=== PATIENT | male | born 1980 | race Two or more races ===

== ENCOUNTER 2017-10-03 13:31 | Emergency (ER) | payer BC ==
[~2017-10-03] VITALS: Ht 172.7 cm; Wt 68.0 kg
[2017-10-03 13:55] VITALS: BP 114/80
[2017-10-03] MEDS ORDERED: FAMO-63 PO (14:25)
[2017-10-03] MEDS ORDERED: PRED20TA PO (14:25)
[2017-10-03] MEDS ORDERED: DIPH25CA58 PO (14:25)
--- NOTE | 2017-10-03 14:25 | PHYS DOC ---
Past Medical History Past Medical History: No Pertinent History Past Surgical History: No Surgical History Alcohol Use: None Drug Use: None Adult General Chief Complaint Chief Complaint: ITCHING HPI HPI Patient is a 37 year old male presents to the emergency department with a 1 week history of rash. Patient states it is worse at night. He showed a picture of a urticaria rash. Denies SOA, difficulty breathing. Denies nausea or vomiting. He denies new soap, new detergent, new medication or new clothing/ linen. Patient has not taken anything for the rash, patient states the rash itches. Information was obtained through the mammal keeper at the patients bedside. Review of Systems Review of Systems Constitutional: Denies fever or chills [] Eyes: Denies change in visual acuity, redness, or eye pain [] HENT: Denies nasal congestion or sore throat [] Respiratory: Denies cough or shortness of breath [] Cardiovascular: No additional information not addressed in HPI [] GI: Denies abdominal pain, nausea, vomiting, bloody stools or diarrhea [] : Denies dysuria or hematuria [] Musculoskeletal: Denies back pain or joint pain [] Integument: rash denies skin lesions [] Neurologic: Denies headache, focal weakness or sensory changes [] Endocrine: Denies polyuria or polydipsia [] All other systems were reviewed and found to be within normal limits, except as documented in this note. Current Medications Current Medications Current Medications Medications (Trade) Dose Ordered Sig/Elise Start Time Stop Time Status Last Admin Dose Admin Diphenhydramine HCl (Benadryl) 25 mg 1X ONCE 10/03/17 14:30 10/03/17 14:31 DC 10/03/17 14:22 25 MG Famotidine (Pepcid) 20 mg 1X ONCE 10/03/17 14:30 10/03/17 14:31 DC 10/03/17 14:22 20 MG Prednisone (Prednisone) 40 mg 1X ONCE 10/03/17 14:30 10/03/17 14:31 DC 10/03/17 14:22 40 MG Allergies Allergies Allergies Coded Allergies Type Severity Reaction Last Updated Verified No Known Drug Allergies 10/03/17 No Physical Exam Physical Exam Constitutional: Well developed, well nourished, no acute distress, non-toxic appearance. [] HENT: Normocephalic, atraumatic, bilateral external ears normal, oropharynx moist, no oral exudates, nose normal. [] Eyes: PERRLA, EOMI, conjunctiva normal, no discharge. [] Neck: Normal range of motion, no tenderness, supple, no stridor. [] Cardiovascular:Heart rate regular rhythm, no murmur [] Lungs & Thorax: Bilateral breath sounds clear to auscultation [] Skin: Warm, dry, no erythema, patient with a red raised rash noted throughout the body. The picture that the patient showed me showed a using bacterial type rash throughout the extremities. Back: No tenderness Extremities: No tenderness, no cyanosis, no clubbing, ROM intact, no edema. [] Neurologic: Alert and oriented X 3, normal motor function, normal sensory function, no focal deficits noted. [] Psychologic: Affect normal, judgement normal, mood normal. [] Current Patient Data Vital Signs Vital Signs Date Time Temp Pulse Resp B/P (MAP) Pulse Ox O2 Delivery O2 Flow Rate FiO2 10/03/17 13:55 98.6 72 16 99 Room Air 98.6 EKG EKG [] Radiology/Procedures Radiology/Procedures [] Course & Med Decision Making Course & Med Decision Making Pertinent Labs and Imaging studies reviewed. (See chart for details) Patient will be discharged home with a prescription for prednisone, Benadryl, and Pepcid. Patient was provided with these medications here in the emergency department. Upon discharge rash is less seema. Recommended keep the area clean and dry and cool. He was also instructed Benadryl will cause drowsiness do not take any be alert and oriented. Patient was provided to the patient's mammal keeper at the bedside. I've spoken with the patient and/or caregivers. I've explained the patient's condition, diagnosis and treatment plan based on information available to me at this time. I've answered the patient's and/or caregivers questions and addressed any concerns. The patient and/or caregivers have a good understanding the patient's diagnosis, condition and treatment plan as can be expected at this point. Vital signs have been stabilized. The patient's condition is stable for discharge from the emergency department. The patient will pursue further outpatient evaluation with her primary care provider or other designated consulting physician as outlined in the discharge instructions. Patient and/or caregivers are agreeable to this plan of care and follow-up instructions have been explained in detail. The patient and/or caregivers have received these instructions in written format and expressed understanding of these discharge instructions. The patient and her caregivers are aware that if any significant change in condition or worsening of symptoms should prompt him to immediately return to this of the closest emergency department. If an emergent department is not readily available I would encourage him to call 911. [] Dragon Disclaimer Dragon Disclaimer This electronic medical record was generated, in whole or in part, using a voice recognition dictation system. Departure Departure Impression: Primary Impression: Urticaria Disposition: HOME, SELF-CARE Condition: STABLE Patient Instructions: Rash, [id number] Additional Instructions: Activity as tolerated Medication as prescribed Benadryl 25 mg every 6 hours with food this medication will cause drowsiness do not take if you need to be alert and oriented. Keep the areas clean dry and cool. Aveeno baths may soothe the skin Followup with your primary care provider in 3-5 days Return to emergency department as needed for signs and symptoms that become worse. Scripts Famotidine (PEPCID) 20 Mg Tablet 20 MG PO HS, #10 TAB Prov: DEEJAY BUCKLEY APRN 10/03/17 Prednisone (PREDNISONE) 20 Mg Tablet 40 MG PO DAILY for 7 Days, #14 TAB Prov: DEEJAY BUCKLEY APRN 10/03/17 Diphenhydramine Hcl (BENADRYL) 25 Mg Capsule 25 MG PO Q6HRS Y for ITCHING, #30 CAP Prov: DEEJAY BUCKLEY APRN 10/03/17 DEEJAY BUCKLEY APRN Oct 03, 2017 14:25
[2017-10-03] MEDS ORDERED: diphenhydrAMINE HCL 25 MG CAPSULE PO ONE (14:30)
[2017-10-03] MEDS ORDERED: predniSONE 20 MG TABLET PO ONE (14:30)
[2017-10-03] MEDS ORDERED: FAMOTIDINE 20 MG TABLET. PO ONE (14:30)
== END 2017-10-03 15:02 | disposition home or self-care (01) ==
LOC: ER 13:31
DX: L50.9 Urticaria, unspecified (principal)
CPT/HCPCS: 99284; J7512; Q0163